=== PATIENT | male | born 1960 | race African-American/Black ===

== ENCOUNTER 2016-06-12 11:57 | Emergency (ER) | payer MEDICARE, OTHER ==
[~2016-06-12] VITALS: Ht 180.3 cm; Wt 80.0 kg
[~2016-06-12 11:57] MED LIST: ACID1TAB14 PO; BACTDS PO; CIPR500T4 PO; IBUP-1542 PO
[2016-06-12 11:59] VITALS: Ht 180.3 cm; Wt 80.0 kg
[2016-06-12] MEDS ORDERED: IBUP-1542 PO (12:59)
[2016-06-12] MEDS ORDERED: IBUPROFEN 600 MG TAB PO ONE (13:00)
[2016-06-12 13:12] VITALS: BP 119/76; PULSE 70; RESP 16
--- NOTE | 2016-06-12 16:36 | ERD ---
ER Documentation Chief Complaint Date/Time DATE: 06/12/16 TIME: 16:35 Chief Complaint requestion pain medication refill HPI 56-year-old man presents with pain to the right inguinal area and is requesting an ibuprofen prescription because he ran out. He has a 3 year history of right inguinal hernia and has yet to follow-up with his surgeon. He denies worsening pain, no fevers or chills, no dysuria, no chest pain or shortness of breath. ROS All systems reviewed and are negative except as per history of present illness. Medications Home Meds Active Scripts Ibuprofen* (Motrin*) 600 Mg Tab, 600 MG PO Q8 for PAIN AND/OR INFLAMMATION, #30 TAB Prov:MARY COTA MD 06/12/16 Acidophilus-Bulgaricus* (Floranex*) 1 Tab.chew Tab.chew, 1 TAB PO BID for 14 Days, TAB.CHEW Prov:FRIEDA JOSHI 06/10/15 Ciprofloxacin Hcl* (Ciprofloxacin Hcl*) 500 Mg Tablet, 500 MG PO BID for 10 Days , TAB Prov:FRIEDA JOSHI 06/10/15 Sulfamethoxazole-Trimethoprim* (Bactrim* DS) 800-160 Mg Tab, 1 TAB PO BID, #20 TAB Prov:FRIEDA JOSHI 06/10/15 Reported Medications Ibuprofen* (Ibuprofen*) 600 Mg Tablet, 600 MG PO Q6H Y for PAIN, TAB 06/06/15 Allergies Allergies: Coded Allergies: No Known Drug Allergies (Verified Allergy, Mild, 06/12/16) PMhx/Soc Inguinal hernia History of Surgery: No Anesthesia Reaction: No Hx Neurological Disorder: No Hx Respiratory Disorders: No Hx Cardiac Disorders: No Hx Psychiatric Problems: Yes (ANXIETY, SCHIZOPHRENIA) Hx Miscellaneous Medical Probl: Yes (Anxiety, Schizophrenia, abdominal hernia) Hx Alcohol Use: No Hx Substance Use: No Hx Tobacco Use: No FmHx Family History: No diabetes Physical Exam Vitals Vital Signs Date Time Temp Pulse Resp B/P Pulse Ox O2 Delivery O2 Flow Rate FiO2 06/12/16 13:12 70 16 119/76 99 Room Air 06/12/16 11:59 97.9 71 18 117/70 98 Physical Exam GENERAL: Well-developed, well-nourished, well-hydrated, in no apparent distress , looks nontoxic in appearance HEENT: Moist mucous membranes, pink conjunctiva, no cervical spine tenderness or step-off deformities, no goiter, no jaundice or icterus, extraocular movements intact without pain. No submandibular induration, and no pharyngeal erythema NEURO: Alert and oriented 3, cranial nerves II through XII intact bilaterally, pupils equal round reactive to light, no focal deficits or facial asymmetry, sensation intact distally Strength 5/5 in upper and lower extremities bilaterally CARDIAC: Regular rate and rhythm, no murmurs rubs or gallops LUNGS: Clear bilaterally no wheezing crackles or stridor ABDOMEN: Soft nontender, no guarding, no rigidity, no rebound, no psoas sign no obturator sign. Large soft minimally tender right inguinal hernia SKIN: Warm and dry to touch, no abrasions, contusions, or hematomas, no lacerations, no ecchymosis, no target lesions, and without ulcers EXTREMITIES: No clubbing cyanosis or edema, calves are bilaterally symmetrical, no Homans sign, no popliteal cord sign. Distal pulses equal and bilateral PSYCH: Normal affect without agitation or irritability Results 24 hrs Current Medications Medications (Trade) Dose Ordered Sig/Kathya Route PRN Reason Start Time Stop Time Status Last Admin Dose Admin Ibuprofen (Motrin) 600 mg ONCE ONCE PO 06/12/16 13:00 06/12/16 13:01 DC 06/12/16 13:10 Procedures/MDM Administered ibuprofen 600 mg p.o. and gave the patient follow-up instructions and referrals to nearby surgeon. Patient feels much better at this time, and vital signs are normal, symptoms have improved. I did give strict instructions to return to the ED if symptoms continue or worsen, patient will otherwise follow-up with primary care physician. Patient understood instructions and agreed to plan. Departure Diagnosis: Primary Impression: Hernia, inguinal Obstruction and gangrene presence: without obstruction or gangrene Laterality : unilateral Recurrence: recurrent Qualified Code: K40.91 - Unilateral recurrent inguinal hernia without obstruction or gangrene Condition: Good Patient Instructions: Hernia (Inguinal, Ventral, Umbilical) Referrals: CARLO RUBIO M.D., DAVID MD Jun 12, 2016 16:36
== END 2016-06-12 13:21 | disposition home or self-care (01) ==
LOC: FTE 11:57
DX: K40.91 Unilateral inguinal hernia, without obstruction or gangrene, recurrent (principal)
CPT/HCPCS: 99281

== ENCOUNTER 2016-10-26 03:46 | Emergency (ER) | payer MEDICARE, OTHER ==
[~2016-10-26] VITALS: Ht 175.3 cm; Wt 78.5 kg
[2016-10-26 04:00] VITALS: Ht 175.3 cm; Wt 78.5 kg
--- NOTE | 2016-10-26 04:57 | ERD ---
ER Documentation Chief Complaint Date/Time DATE: 10/26/16 TIME: 04:52 Chief Complaint wants recheck of his inguinal hernia HPI 56-year-old male presents here in emergency department for a recheck of his inguinal hernia, patient also wants a list of doctors in the area for him to establish care.Patient denies any pain. Patient denies any dysuria or hematuria. Patient denies any constipation, incontinence, problems with bowel or bladder habits.. ROS All systems reviewed and are negative except as per history of present illness. Medications Home Meds Active Scripts Ibuprofen* (Motrin*) 600 Mg Tab, 600 MG PO Q8 for PAIN AND/OR INFLAMMATION, #30 TAB Prov:MARY COTA MD 06/12/16 Acidophilus-Bulgaricus* (Floranex*) 1 Tab.chew Tab.chew, 1 TAB PO BID for 14 Days, TAB.CHEW Prov:FRIEDA JOSHI 06/10/15 Ciprofloxacin Hcl* (Ciprofloxacin Hcl*) 500 Mg Tablet, 500 MG PO BID for 10 Days , TAB Prov:FRIEDA JOSHI 06/10/15 Sulfamethoxazole-Trimethoprim* (Bactrim* DS) 800-160 Mg Tab, 1 TAB PO BID, #20 TAB Prov:FRIEDA JOSHI 06/10/15 Reported Medications Ibuprofen* (Ibuprofen*) 600 Mg Tablet, 600 MG PO Q6H Y for PAIN, TAB 06/06/15 Allergies Allergies: Coded Allergies: No Known Drug Allergies (Verified Allergy, Mild, 06/12/16) PMhx/Soc History of Surgery: No Anesthesia Reaction: No Hx Neurological Disorder: No Hx Respiratory Disorders: No Hx Cardiac Disorders: No Hx Psychiatric Problems: Yes (Anxiety,Schizophrenia) Hx Miscellaneous Medical Probl: Yes (Abdominal Hernia) Hx Alcohol Use: No Hx Substance Use: No Hx Tobacco Use: No Smoking Status: Unknown if ever smoked FmHx Family History: No coronary disease, No diabetes, No other Physical Exam Vitals Vital Signs Date Time Temp Pulse Resp B/P Pulse Ox O2 Delivery O2 Flow Rate FiO2 10/26/16 04:00 97.6 73 20 130/76 99 Physical Exam GENERAL: The patient is well developed and appropriate for usual state of health, in no apparent distress. CHEST: Clear to auscultation bilaterally. There are no rales, wheezes or rhonchi. HEART: Regular rate and rhythm. No murmurs, clicks, rubs or gallops. No S3 or S4. ABDOMEN: Soft, nontender and nondistended. Good bowel sounds. No rebound or guarding. No gross peritonitis. No gross organomegaly or masses. No Manley sign or McBurney point tenderness. BACK: No midline or flank tenderness. EXTREMITIES: Equal pulses bilaterally. There is no peripheral clubbing, cyanosis or edema. No focal swelling or erythema. Full range of motion. Grossly neurovascularly intact. NEURO: Alert and oriented. Cranial nerves 2-12 intact. Motor strength in all 4 extremities with 5/5 strength. Sensation grossly intact. Normal speech and gait. SKIN: There is no apparent rash or petechia. The skin is warm and dry. HEMATOLOGIC AND LYMPHATIC: There is no evidence of excessive bruising or lymphedema. No gross cervical, axillary, or inguinal lymphadenopathy. : noted right inguinal hernia, No incarceration noted, able to be reduced. Nontender on palpation. No other scrotal swelling. No penile discharge noted. Procedures/MDM Medical decision making: Patient has a right inguinal hernia, this time, and it is reducible, no symptoms of any incarceration. Patient was given resources for community clinics and hospitals around the area. No symptoms of any obstruction. Patient was advised to consult general surgeon for possible repair of his hernia. Patient is advised to return to emergency department for any worsening symptoms. Disposition: Home. Stable. Departure Diagnosis: Primary Impression: Inguinal hernia Obstruction and gangrene presence: without obstruction or gangrene Laterality : unilateral Recurrence: recurrent Qualified Code: K40.91 - Unilateral recurrent inguinal hernia without obstruction or gangrene Condition: Stable Patient Instructions: Hernia (Inguinal, Ventral, Umbilical) Referrals: [facility] YOU HAVE RECEIVED A MEDICAL SCREENING EXAM AND THE RESULTS INDICATE THAT YOU DO NOT HAVE A CONDITION THAT REQUIRES URGENT TREATMENT IN THE EMERGENCY DEPARTMENT. FURTHER EVALUATION AND TREATMENT OF YOUR CONDITION CAN WAIT UNTIL YOU ARE SEEN IN YOUR DOCTORS OFFICE WITHIN THE NEXT 1-2 DAYS. IT IS YOUR RESPONSIBILITY TO MAKE AN APPOINTMENT FOR FOLOW-UP CARE. IF YOU HAVE A PRIMARY DOCTOR --you should call your primary doctor and schedule an appointment IF YOU DO NOT HAVE A PRIMARY DOCTOR YOU CAN CALL OUR PHYSICIAN REFERRAL HOTLINE AT IF YOU CAN NOT AFFORD TO SEE A PHYSICIAN YOU CAN CHOSE FROM THE FOLLOWING [facility] [address] [facility] [address] [facility] [address] [facility] [address] [facility] [address] [facility]. [facility] [address] [facility]. [facility] YOU HAVE RECEIVED A MEDICAL SCREENING EXAM AND THE RESULTS INDICATE THAT YOU DO NOT HAVE A CONDITION THAT REQUIRES URGENT TREATMENT IN THE EMERGENCY DEPARTMENT. FURTHER EVALUATION AND TREATMENT OF YOUR CONDITION CAN WAIT UNTIL YOU ARE SEEN IN YOUR DOCTORS OFFICE WITHIN THE NEXT 1-2 DAYS. IT IS YOUR RESPONSIBILITY TO MAKE AN APPOINTMENT FOR FOLOW-UP CARE. IF YOU HAVE A PRIMARY DOCTOR --you should call your primary doctor and schedule and appointment IF YOU DO NOT HAVE A PRIMARY DOCTOR YOU CAN CALL OUR PHYSICIAN REFERRAL HOTLINE AT . IF YOU CAN NOT AFFORD TO SEE A PHYSICIAN YOU CAN CHOSE FROM THE FOLLOWING [facility] INSTITUTIONS: [facility] [address] [place] [address] [facility] [address] [place] [address] [facility] [address] [place] [address] RADHA CARNES NP Oct 26, 2016 04:57
== END 2016-10-26 04:30 | disposition home or self-care (01) ==
LOC: FTE 03:46
DX: K40.91 Unilateral inguinal hernia, without obstruction or gangrene, recurrent (principal)
CPT/HCPCS: 99282

== ENCOUNTER 2018-07-17 01:12 | Emergency (ER) | payer MEDICARE, MEDICAID ==
[~2018-07-17] VITALS: Wt 83.3 kg
[2018-07-17 01:15] VITALS: BP 137/74; PULSE 70; RESP 18
[2018-07-17] MEDS ORDERED: IBUP-1542 PO (03:08)
[2018-07-17] MEDS ORDERED: RANI150T35 PO (03:08)
--- NOTE | 2018-07-19 14:58 | ERD ---
ER Documentation Chief Complaint Chief Complaint REQUESTING REFILL SCRIPT FOR IBUPROFEN HPI 58-year-old male with past medical history of chronic full body pain presenting to the emergency department with request for refill of ibuprofen. He states he regularly takes ibuprofen for myalgias. He denies any chest pain, shortness of breath, fevers, chills, or other symptoms at this time. Symptoms are currently mild in severity. ROS All systems reviewed and are negative except as per history of present illness. Medications Home Meds Active Scripts Ranitidine Hcl* (Zantac*) 150 Mg Tablet, 150 MG PO BID PRN for EPIGASTRIC PAIN, #30 TAB Prov:MOISE COCHRAN PA-C 07/17/18 Ibuprofen* (Motrin*) 600 Mg Tab, 600 MG PO Q6, #30 TAB Prov:MOISE COCHRAN PA-C 07/17/18 Ibuprofen* (Motrin*) 600 Mg Tab, 600 MG PO Q8 for PAIN AND/OR INFLAMMATION, #30 TAB Prov:MARY COTA MD 06/12/16 Acidophilus-Bulgaricus* (Floranex*) 1 Tab.chew Tab.chew, 1 TAB PO BID for 14 Days, TAB.CHEW Prov:FRIEDA JOSHI NP 06/10/15 Ciprofloxacin Hcl* (Ciprofloxacin Hcl*) 500 Mg Tablet, 500 MG PO BID for 10 Days, TAB Prov:FRIEDA JOSHI NP 06/10/15 Sulfamethoxazole-Trimethoprim* (Bactrim* DS) 800-160 Mg Tab, 1 TAB PO BID, #20 TAB Prov:FRIEDA JOSHI NP 06/10/15 Reported Medications Ibuprofen* (Ibuprofen*) 600 Mg Tablet, 600 MG PO Q6H PRN for PAIN, TAB 06/06/15 Allergies Allergies: Coded Allergies: No Known Drug Allergies (Verified Allergy, Mild, 06/12/16) PMhx/Soc History of Surgery: No Anesthesia Reaction: No Hx Neurological Disorder: No Hx Respiratory Disorders: No Hx Cardiac Disorders: No Hx Psychiatric Problems: Yes (Anxiety,Schizophrenia) Hx Miscellaneous Medical Probl: Yes (Abdominal Hernia) Hx Alcohol Use: No Hx Substance Use: No Hx Tobacco Use: No Smoking Status: Never smoker FmHx Family History: No diabetes Physical Exam Vitals Vital Signs Date Temp Pulse Resp B/P (MAP) Pulse Ox O2 O2 Flow FiO2 Time Delivery Rate 5/21/19 97.9 70 18 137/74 100 01:15 (95) Physical Exam Const: No acute distress Head: Atraumatic Eyes: Normal Conjunctiva ENT: Normal External Ears, Nose and Mouth. Neck: Full range of motion. No meningismus. Resp: Clear to auscultation bilaterally Cardio: Regular rate and rhythm, no murmurs Skin: No petechiae or rashes Ext: No cyanosis, or edema Neur: Awake and alert Psych: Normal Mood and Affect Procedures/MDM 58-year-old male presenting to the emergency department for refill of ibuprofen. He states he takes ibuprofen regularly for full body pain. He denies any chest pain or shortness of breath at this time. He is nontoxic and well-appearing. He will be given a refill prescription of ibuprofen and prescription for ranitidine to prevent gastritis or gastric ulcers. Patient was advised of the risks of taking ibuprofen for chronic pain and he demonstrated good understanding. No evidence of life-threatening or emergent pathology. The patient was in agreement with the diagnosis, plan, need for follow-up, return precautions. Departure Diagnosis: Primary Impression: Encounter for medication refill Condition: Fair Patient Instructions: Taking Medicine Safely Referrals: APRIL MAK MD (PCP) Additional Instructions: Call your primary care doctor TOMORROW for an appointment during the next 1-2 days.See the doctor sooner or return here if your condition worsens before your appointment time. MOISE COCHRAN PA-C July 19, 2018 14:58
== END 2018-07-17 04:23 | disposition home or self-care (01) ==
LOC: FTE 01:12
DX: Z76.0 Encounter for issue of repeat prescription (principal)
CPT/HCPCS: 99281

== ENCOUNTER 2018-08-01 13:28 | Emergency (ER) | payer MEDICARE, MEDICAID ==
[~2018-08-01] VITALS: Ht 180.3 cm; Wt 80.5 kg
[~2018-08-01 13:28] MED LIST changes: +RANI150T35 PO
[2018-08-01 13:37] VITALS: BP 140/87; PULSE 64; RESP 19; Ht 180.3 cm; Wt 80.5 kg
--- NOTE | 2018-08-01 14:00 | ERD ---
ER Documentation Chief Complaint Chief Complaint RIGHT THUMB RASH HPI 58-year-old male presenting with a rash to his right thumb. Patient is homeless and has constantly lifting heavy bags. He notes this rash developed a few days ago. It does not cause any pain or irritation. He has not put any medication on the site. Denies other medical problems. NKDA. Surgical history denies. Social history denies ROS All systems reviewed and are negative except as per history of present illness. Medications Home Meds Active Scripts Ranitidine Hcl* (Zantac*) 150 Mg Tablet, 150 MG PO BID PRN for EPIGASTRIC PAIN, #30 TAB Prov:MOISE COCHRAN PA-C 07/17/18 Ibuprofen* (Motrin*) 600 Mg Tab, 600 MG PO Q6, #30 TAB Prov:MOISE COCHRAN PA-C 07/17/18 Ibuprofen* (Motrin*) 600 Mg Tab, 600 MG PO Q8 for PAIN AND/OR INFLAMMATION, #30 TAB Prov:MARY COTA MD 06/12/16 Acidophilus-Bulgaricus* (Floranex*) 1 Tab.chew Tab.chew, 1 TAB PO BID for 14 Days, TAB.CHEW Prov:FRIEDA JOSHI NP 06/10/15 Ciprofloxacin Hcl* (Ciprofloxacin Hcl*) 500 Mg Tablet, 500 MG PO BID for 10 Days, TAB Prov:FRIEDA JOSHI NP 06/10/15 Sulfamethoxazole-Trimethoprim* (Bactrim* DS) 800-160 Mg Tab, 1 TAB PO BID, #20 TAB Prov:FRIEDA JOSHI NP 06/10/15 Reported Medications Ibuprofen* (Ibuprofen*) 600 Mg Tablet, 600 MG PO Q6H PRN for PAIN, TAB 06/06/15 Allergies Allergies: Coded Allergies: No Known Drug Allergies (Verified Allergy, Mild, 06/12/16) PMhx/Soc History of Surgery: No Anesthesia Reaction: No Hx Neurological Disorder: No Hx Respiratory Disorders: No Hx Cardiac Disorders: No Hx Psychiatric Problems: Yes (Anxiety,Schizophrenia) Hx Miscellaneous Medical Probl: Yes (Abdominal Hernia) Hx Alcohol Use: No Hx Substance Use: No Hx Tobacco Use: No FmHx Family History: No diabetes, No coronary disease, No other Physical Exam Vitals Vital Signs Date Temp Pulse Resp B/P (MAP) Pulse Ox O2 O2 Flow FiO2 Time Delivery Rate 08/01/18 98.0 64 19 140/87 99 13:37 (104) Physical Exam GENERAL: The patient is well-appearing, well-nourished, in no acute distress CHEST: Clear to auscultation bilaterally. There are no rales, wheezes or rhonchi. HEART: Regular rate and rhythm. No murmurs, clicks, rubs or gallops. EXTREMITIES: Equal pulses bilaterally. There is no peripheral clubbing, cyanosis or edema. No focal swelling or erythema. NEUROLOGIC: Alert and oriented. Cranial nerves II through XII intact. Motor strength in all 4 extremities with 5 out of 5 strength. Sensation grossly intact. SKIN: Callus skin noted to be the left lateral thumb. No fluctuance. No erythema. No vesicles or pustules. Procedures/MDM MDM: 58-year-old male presenting with findings consistent with a callus. I do not feel there is findings consistent with foreign body versus infection. Patient does not require medical intervention. Patient is discharged with strict ER precautions and told to follow-up with primary care within 1 to 2 days for evaluation. All questions answered at discharge Departure Diagnosis: Primary Impression: Callus Condition: Stable Patient Instructions: What Are Corns and Calluses? Additional Instructions: FOLLOW UP WITH YOUR PRIMARY CARE PHYSICIAN TOMORROW.Return to this facility if you are not improving as expected. JAMES CESAR PA-C Aug 01, 2018 14:00
== END 2018-08-01 14:48 | disposition home or self-care (01) ==
LOC: FTE 13:28
DX: L84 Corns and callosities (principal)
CPT/HCPCS: 99282